=== PATIENT | male | born 1945 | race Caucasian/White ===

== ENCOUNTER 2017-09-27 09:13 | Inpatient (IN) ==
[2017-09-25 17:41] LABS: Appearance,Urine CLEAR; Bacteria,Urine 0 /hpf (0); Bilirubin,Urine NEG (NEG); Color,Urine YELLOW; Glucose,Urine (UA) NEGATIVE (NEG); Ictotest,Urine NEG (NEG); Leukocyte Esterase,Urine NEG /uL (NEG); Mucus,Urine FEW /hpf (0); Nitrate,Urine NEG (NEG); Protein,Urine NEG (NEG); Urine Blood 0.03 mg/dL (<0.03); Urine RBC 47 /hpf (0-1); Urine Squamous Epithelial Cell 1 /hpf (0-4); Urine WBC 2 /hpf (0-4)
[2017-09-25 17:44] LABS: Basophils # (Auto) 0 K/mcL (0.0-0.3); Basophils % (Auto) 0.4 % (0.0-2.0); Eosinophils # (Auto) 0 K/mcL (0.0-0.7); Eosinophils % (Auto) 0.4 % (0.0-7.0); Granulocytes % (Auto) 70.9 % (38.0-78.0); Lymphocytes # (Auto) 1.1 K/mcL (1.5-4.8); Lymphocytes % (Auto) 18.8 % (15.5-49.0); Mean Cell Volume 91.2 fL (80.0-100.0); Mean Corpuscular Hemoglobin 30.1 pg (26.0-34.0); Monocytes # (Auto) 0.6 K/mcL (0.1-0.9); Monocytes % (Auto) 9.5 % (1.0-12.0); Platelet Count 194 K/mcL (140-440); RBC 5.59 M/mcL (4.50-5.90); Red Cell Distribution Width 15.4 % (11.5-14.5)
[2017-09-25 17:54] LABS: Blood Urea Nitrogen 18 mg/dl (8-23)
[~2017-09-27 09:13] MED LIST: 0.9 % SODIUM CHLORIDE 250 ML IV SCH; CELECOXIB 200 MG CAPSULE PO SCH; KETOROLAC 30 MG, ROPIVACAINE HCL/PF 49.5 ML, EPINEPHrine 0.5 MG, 0.9 % SODIUM CHLORIDE ... IJ SCH; PREGABALIN 150 MG CAPSULE PO SCH; ceFAZolin 1 GM VIAL IV SCH; oxyCODONE 10 MG TAB.ER.12H PO SCH
[2017-09-27] MEDS ORDERED: PREGABALIN 75 MG CAPSULE PO SCH (10:00)
[2017-09-27] MEDS ORDERED: LIDOCAINE HCL/PF 100 MG/5 ML SYRINGE IV ONE (10:55)
[2017-09-27] MEDS ORDERED: MIDAZOLAM 2 MG/2 ML VIAL IV ONE (10:55)
[2017-09-27] MEDS ORDERED: ONDANSETRON 4 MG/2 ML VIAL IV ONE (10:55)
[2017-09-27] MEDS ORDERED: PROPOFOL 200 MG/20 ML VIAL IV ONE (10:55)
[2017-09-27] MEDS ORDERED: PHENYLEPHRINE 10 MG/ML VIAL IV ONE (10:55)
[2017-09-27] MEDS ORDERED: EPINEPHrine 1 MG/ML ML IV ONE (10:55)
[2017-09-27] MEDS ORDERED: BUPIVACAINE PF 0.5% 30 ML VIAL IJ ONE (10:55)
[2017-09-27] MEDS ORDERED: KETAMINE 100 MG/ML ML IV ONE (10:55)
[2017-09-27] MEDS ORDERED: GLYCOPYRROLATE 0.2 MG/ML VIAL IV ONE (10:55)
[2017-09-27] MEDS ORDERED: TRANEXAMIC ACID 1,000 MG/10 ML VIAL IV ONE ×2 (10:55→13:01)
[2017-09-27] MEDS ORDERED: MEPERIDINE 25 MG/ML SYRINGE IV PRN (12:04)
[2017-09-27] MEDS ORDERED: METHOCARBAMOL 1,000 MG/10 ML VIAL IV PRN (12:04)
[2017-09-27] MEDS ORDERED: ONDANSETRON 4 MG/2 ML VIAL IV PRN ×2 (12:04→13:01)
[2017-09-27] MEDS ORDERED: fentaNYL 100 MCG/2 ML VIAL IV PRN (12:04)
[2017-09-27] MEDS ORDERED: IPRATROPIUM/ALBUTEROL 3 ML AMPUL.NEB NEB PRN (12:04)
[2017-09-27] MEDS ORDERED: LACTATED RINGERS 1,000 ML IV SCH (12:15)
[2017-09-27] MEDS ORDERED: FLEETS ADULT ENEMA PR PRN (13:01)
[2017-09-27] MEDS ORDERED: MAGNESIUM HYDROXIDE 30 ML ORAL.SUSP PO PRN (13:01)
[2017-09-27] MEDS ORDERED: BENZOCAINE/MENTHOL 1 LOZENGE PO PRN (13:01)
[2017-09-27] MEDS ORDERED: POLYETHYLENE GLYCOL 3350 17 GM PACKET PO PRN (13:01)
[2017-09-27] MEDS ORDERED: BISACODYL 10 MG SUPP.RECT PR PRN (13:01)
--- NOTE | 2017-09-27 13:01 | Brief Operative Note ---
Date of procedure: 09/27/17 Pre-op diagnosis: Left knee DJD Post-op diagnosis: same Procedure: Left robotic assisted TKA Grafts/Implants: Yes ([place] Triathlon CR 5 femur, 5 tibia, 9 insert, 31 patella) Anesthesia: spinal, GLMA Findings: multi compartment DJD Complications: none Surgeon: Dixon Childs Pad Tufter: Riley Soliz Estimated blood loss (cc): 30 Specimens Removed/Pathology: none sent Condition: stable Disposition: PACU
--- NOTE | 2017-09-27 14:21 | XRay Report ---
HISTORY: Reason for Exam:Post-op total knee FINDINGS: There is a well positioned total knee prosthesis. There are radiolucent screw holes in the distal femur and proximal tibia due to the surgical procedure. No fracture is present. A moderate amount of calcified plaque is present in the popliteal artery. IMPRESSION: Well-positioned left knee prosthesis Interpreted and Authenticated by: Ti Pollack 09/27/17
[2017-09-27] MEDS: 0.9 % SODIUM CHLORIDE 1,000 ML IV SCH (14:33)
[2017-09-27] MEDS: 0.9 % SODIUM CHLORIDE 10 ML SYRINGE IV SCH ×2 (14:34→20:50)
[2017-09-27] MEDS: HYDROcodone/APAP 10/325MG TABLET PO PRN ×2 (16:44→20:50)
[2017-09-27] MEDS: ceFAZolin 1 GM VIAL IV SCH (19:15)
[2017-09-27] MEDS: PREGABALIN 150 MG CAPSULE PO SCH (20:50)
[2017-09-27] MEDS: ASPIRIN 325 MG ENTERIC COATED TABLET PO SCH (20:50)
[2017-09-27] MEDS: SENNOSIDES 1 TABLET PO SCH (20:50)
[2017-09-27] MEDS: DOCUSATE SODIUM 100 MG CAPSULE PO SCH (20:50)
[2017-09-27] MEDS: HYDROmorphone 2 MG/ML SYRINGE IV PRN (23:15)
[2017-09-28] MEDS: 0.9 % SODIUM CHLORIDE 1,000 ML IV SCH ×3 (01:09→19:59)
[2017-09-28] MEDS: HYDROcodone/APAP 10/325MG TABLET PO PRN ×2 (03:15→06:52)
[2017-09-28] MEDS: ceFAZolin 1 GM VIAL IV SCH (03:16)
[2017-09-28] MEDS: HYDROmorphone 2 MG/ML SYRINGE IV PRN ×3 (06:03→19:27)
[2017-09-28] MEDS: 0.9 % SODIUM CHLORIDE 10 ML SYRINGE IV SCH ×3 (06:03→23:35)
--- NOTE | 2017-09-28 07:26 | Orthopedic Progress Note ---
Orthopedics - Auxillary Note - Subjective Patient Information: Note initiated : 09/28/17 at 7:25 am Service Date, if different from initiated Date: [] Patient: Cuco Christianson 72 y/o M admitted on 09/27/17 for Lt Medial Partial James Knee Arthroplasty vs Total. Chief Complaint: moderate pain bandages light bloody drainage nvi-distal Vital Signs Temp Pulse Resp BP BP Pulse Ox 09/28/17 03:19 98.2 F 89 24 H 146/81 91 09/28/17 00:00 97.9 F 75 24 H 132/74 91 09/27/17 20:00 97.4 F 62 24 H 133/62 92 09/27/17 17:00 135/66 93 09/27/17 16:00 190/80 94 09/27/17 15:30 162/81 86 L 09/27/17 15:00 149/79 92 09/27/17 14:45 150/68 94 09/27/17 14:30 158/69 95 09/27/17 14:15 97.1 F 159/67 92 09/27/17 14:06 99.1 F H 73 16 168/70 94 09/27/17 13:50 98.8 F 71 16 165/61 94 09/27/17 13:35 98.8 F 74 18 147/81 96 09/27/17 09:43 98.2 F 76 16 177/74 97 Intake and Output 09/27/17 09/28/17 09/28/17 21:59 05:59 13:59 Intake Total 1200 / 1200 2250 / 2250 Output Total 800 / 800 825 / 825 Balance 400 / 400 1425 / 1425 Intake: IV 1000 / 1000 Sodium Chloride 0.9% 1,000 ml @ 1000 / 1000 100 mls/hr IV .Q10H TAY Rx#: [id number] Oral 1200 / 1200 1250 / 1250 Output: Void Amount 650 / 650 825 / 825 Estimated Blood Loss 150 / 150 Other: Meal Dinner sandwich Percent of Meal Consumed 100% 100% Feeding Ability Independent Independent Weight 302 lb Laboratory Results - last 24 hr 09/28/17 06:15 Hgb 13.9 Hct 40.9 L s/p L TKA-stable mobilize with PT tentative discharge 09/29/17
[2017-09-28] MEDS: ASPIRIN 325 MG ENTERIC COATED TABLET PO SCH ×2 (08:16→20:05)
[2017-09-28] MEDS: POTASSIUM CHLORIDE 10 MEQ TABLET PO SCH (08:16)
[2017-09-28] MEDS: DOCUSATE SODIUM 100 MG CAPSULE PO SCH ×2 (08:16→20:05)
[2017-09-28] MEDS: PREGABALIN 150 MG CAPSULE PO SCH ×2 (08:16→20:05)
[2017-09-28] MEDS: amLODIPine 10 MG TABLET PO SCH (08:16)
[2017-09-28] MEDS: FUROSEMIDE 20 MG TABLET PO SCH (08:16)
--- NOTE | 2017-09-28 09:37 | Operative Note ---
DATE OF OPERATION: 09/27/2017 PREOPERATIVE DIAGNOSIS: Left knee degenerative joint disease. POSTOPERATIVE DIAGNOSIS: Left knee degenerative joint disease. PROCEDURE PERFORMED: Left robotic-assisted total knee arthroplasty placing a [place] triathlon size 5 cruciate retaining femoral component, a size 5 tibial baseplate, a 9 mm X3 tibial insert with a 31 mm patellar button. SURGEON: Dixon Childs MD. EXTERMINATOR TERMITE: Herman Soliz PA-C. ANESTHESIA: Spinal plus general. DRAINS: None. SPECIMENS: Bone cuts, which were discarded. BLOOD LOSS: Less than 50 mL COMPLICATIONS: None. POSTOPERATIVE CONDITION: Stable. INDICATIONS FOR SURGERY: This is a 72-year-old male who has had longstanding worsening severe left knee pain. He had x-rays which showed joint space narrowing and arthritis. He had received injections with only temporary relief and it was limiting his ability to ambulate. FINDINGS AT SURGERY: He did have fairly significant trochlear chondromalacia as well as medial femoral condyle chondromalacia and there was a chondral defect with a grade III flap off the lateral femoral condyle. Post implantation showed good overall limb alignment, stability and patellar tracking. PROCEDURE IN DETAIL: The patient had been seen preoperatively. Informed consent had been obtained after discussion of risks and benefits of surgery. Risks including, but not limited to, bleeding, possibly requiring transfusion; infection, possibly requiring implant removal and prolonged IV antibiotics, possibly even above-knee amputation, incomplete or no resolution of symptoms; DVT and pulmonary embolus risks, instability; swelling; stiffness, clunking; possibility of needing further revision surgery. He understood these risks and wished to proceed. Correct operative site was marked and the patient was given spinal anesthesia and taken to the operating room and LMA general given. The left lower extremity was carefully prepped and draped in normal sterile fashion and a time-out was performed verifying patient name, operative site, and plan. Esmarch was used to exsanguinate the extremity and tourniquet was inflated to 300 mmHg. Midline incision was made with a scalpel through skin and subcutaneous tissue and then IrriSept was irrigated. We then made a medial parapatellar arthrotomy. Subperiosteal exposure was done of the anterior medial tibia and then we inspected the joint and found the above findings. Based off those findings, we elected to proceed with a total knee. We went ahead and excised the retropatellar fat pad and anterior horns of the menisci. ACL was transected and the distal anterior cortex of the femur was also exposed subperiosteally. We placed the femoral and tibial checkpoints and then two stab incisions were made over the femur and two over the tibia and bicortical pins were placed and the arrays were connected. We then checked our hip center of rotation. The green probe was used to identify our medial lateral malleoli, double checks were done with green probe and the femoral and tibial checkpoints. We then did the blue probe for mapping. Once this was completed, we checked our flexion and extension gaps. Adjustments were made to give us 17 mm gap which we had on flexion medial and laterally as well as extension medially with 18 mm laterally. We went ahead and locked in the computer and then using the robotic assistance we made our distal and posterior chamfer cuts followed by our remaining cuts. Once this was completed, tibial rotation was marked with the green probe and Bovie cautery. We then placed our tibial baseplate trial pinning this into place. A boss reamer and keel punch were used to repair and then the femur was elevated. A curved osteotome and curet were used to remove osteophytes. We then placed our keel baseplate trial. The femur trial was impacted and pinned. We drilled our peg holes. A 9 insert trial was placed which was very snug. The knee was then taken into full extension. We then prepared the patella. Pre-resection was 24 mm, post-resection was 14 mm. We sized this to a 31, which was medialized maximally. Peg holes were drilled. We then performed a lateral facetectomy. We checked our patellar tracking, which was good. We went ahead and removed trial implants. Definitive implants were opened. IrriSept was used to fill the joint. After a minute we pulse lavaged with saline. Antibiotic cement was mixed. We cemented the tibia followed by the femur. Excess cement was removed and then the 9 insert trial was placed and the knee was taken into full extension. Patellar button was then cemented and then while cement was hardening, the joint was filled the IrriSept again and we injected pain cocktail into the pericapsular and subcutaneous tissues. Then pulse lavaged until cement had fully hardened and then flexed the knee up, removed the trial insert and did final removal for any cement. We injected the posterior medial capsule with pain cocktail and then irrigated IrriSept, and the definitive 9 mm insert was impacted. We then pulse lavaged and then the knee was placed in about 45 degrees of flexion. Checkpoints were removed and then interrupted #2 FiberWire was used, [id number] around the superior quadrant of the patella, #1 Vicryl [id number] around the inferior quadrant running #1 Vicryl stitch for the patellar tendon and quad tendon. Final IrriSept irrigation was done, after a minute final pulse lavage and then 2-0 Monocryl subcutaneous and louisa for skin. The pins were removed and louisa used for the pin sites. Xeroform and sterile dressing were applied and the tourniquet was released. The patient was awakened, extubated, and transferred to recovery in stable condition. BJB:kemal Job ID: [id number] Doc ID: [id number] Dixon Childs MD
[2017-09-28] MEDS: oxyCODONE/APAP 5/325MG TABLET PO PRN ×4 (11:55→23:29)
[2017-09-28] MEDS: SENNOSIDES 1 TABLET PO SCH (20:05)
[2017-09-29] MEDS: oxyCODONE/APAP 5/325MG TABLET PO PRN (04:16)
[2017-09-29] MEDS: 0.9 % SODIUM CHLORIDE 10 ML SYRINGE IV SCH ×3 (04:21→23:06)
[2017-09-29] MEDS ORDERED: oxyCODONE/APAP 5/325MG TABLET PO PRN (07:45)
[2017-09-29] MEDS: FUROSEMIDE 20 MG TABLET PO SCH (09:29)
[2017-09-29] MEDS: PREGABALIN 150 MG CAPSULE PO SCH ×2 (09:29→21:25)
[2017-09-29] MEDS: ASPIRIN 325 MG ENTERIC COATED TABLET PO SCH ×2 (09:29→21:25)
[2017-09-29] MEDS: POTASSIUM CHLORIDE 10 MEQ TABLET PO SCH (09:29)
[2017-09-29] MEDS: amLODIPine 10 MG TABLET PO SCH (09:29)
[2017-09-29] MEDS: DOCUSATE SODIUM 100 MG CAPSULE PO SCH ×2 (09:29→21:25)
--- NOTE | 2017-09-29 10:06 | Orthopedic Progress Note ---
Subjective Patient information: Note initiated : 09/29/17 at 10:03 am Service Date, if different from initiated Date: [] Patient: Cuco Christianson 72 y/o M admitted on 09/27/17 for Lt Medial Partial James Knee Arthroplasty vs Total. Chief Complaint: [] Principal diagnosis: s/p L total knee Interval history: c/o severe pain, unable to mobilize Objective Vital signs: Vital Signs Temp Pulse Resp BP BP Pulse Ox 09/29/17 07:03 97.7 F 20 126/68 93 09/29/17 06:43 24 H 94 09/29/17 04:00 97.9 F 83 24 H 148/76 96 09/28/17 23:18 98.6 F 80 18 149/68 91 09/28/17 20:00 98.2 F 84 20 151/73 91 09/28/17 16:00 97.6 F 20 150/83 90 09/28/17 12:00 97.6 F 20 159/86 90 Intake and Output 09/28/17 09/29/17 09/29/17 21:59 05:59 13:59 Intake Total 420 / 420 960 / 960 120 / 120 Output Total 750 / 750 575 / 575 700 / 700 Balance -330 / -330 385 / 385 -580 / -580 Intake: Oral 420 / 420 960 / 960 120 / 120 Output: Void Amount 750 / 750 575 / 575 700 / 700 Other: Meal Dinner Breakfast Percent of Meal Consumed 75% 100% Feeding Ability Independent # Voids 2 1 Weight 304 lb Intake & Output: Intake & Output 09/28/17 09/29/17 09/29/17 21:59 05:59 13:59 Intake Total 420 / 420 960 / 960 120 / 120 Output Total 750 / 750 575 / 575 700 / 700 Balance -330 / -330 385 / 385 -580 / -580 Weight 304 lb Intake: Oral 420 / 420 960 / 960 120 / 120 Output: Void Amount 750 / 750 575 / 575 700 / 700 Other: Meal Dinner Breakfast Percent of Meal Consumed 75% 100% Feeding Ability Independent # Voids 2 1 Dressing: Yes clean, Yes dry, Yes intact Neurological exam IM: Yes alert, Yes oriented X3 - Labs CBC & BMP: 09/29/17 04:53 09/25/17 15:10 Labs: Orthopedic Labs 09/29/17 09/28/17 09/25/17 04:53 06:15 15:10 PT 15.6 H 13.7 13.4 INR 1.2 H 1.0 1.0 09/29/17 09/28/17 09/25/17 04:53 06:15 15:10 Hgb 13.1 L 13.9 16.8 H Hct 38.7 L 40.9 L 51.0 Assessment and Plan (1) Status post total knee replacement, left POD#2 s/p L total knee-progressing poorly due to poor pain tolerance and deconditioning -increase oral pain meds to percocet 10 -cont to try to mobilize -will hold d/c today, may need short term SNF or swing bed if he can't improve his mobilization Status: Acute
--- NOTE | 2017-09-29 10:10 | Discharge Summary ---
Providers - Providers Patient information: Note initiated : 09/29/17 at 10:08 am Service Date, if different from initiated Date: [] Patient: Cuco Christianson 72 y/o M admitted on 09/27/17 for Lt Medial Partial James Knee Arthroplasty vs Total. Chief Complaint: [] Date of admission: 09/27/17 Discharge date: 09/30/17 Attending physician: Dixon Childs Hospitalization Hospital course: Patient was admitted postoperatively, he progressed poorly due to poor pain tolerance from hx of chronic narcotic use and deconditioning and morbid obesity. Discharge diagnosis: s/p Left total knee arthroplasty Procedures: Left robotic assisted total knee arthroplasty Exam - Exam Clean and dry: Yes Weight bearing status: as tolerated Ortho Discharge - TKA - Patient Instructions Diet: Consistent Carbohydrate Activity: weight bearing as tolerated Total Knee Protocol: For Total Knee: Start ROM ZENA with stationary bike or rocking chair. Work on gaining full extension of knee. Posterior dislocation precautions provided. Hip abductor strengthening and gait training instructions provided. Apply Cryocuff as instructed. Dressing Care: Aquacel Ag - leave on for 5 days Patient Education: Total Knee Replacement (DC) Additional Instructions: Discharge Instructions: Do the exercises at home that physical therapy gave you throughout the day. You are scheduled to start physical therapy at Take your prescription, photo ID, insurance cards, and current medication list with you to your first physical therapy appointment. Take your prescription to pharmacy picking technician any medication or equipment (such as walker, crutches, toilet riser or C.P.M.) Wear comfortable clothing for your physical therapy, wear/bring shorts. Weight bearing as tolerated. You have the Aquacel Ag dressing, leave in place for 7 days then remove. If dressing becomes soiled (turns black), remove and use gauze 4x4 dressing and silvasorb ointment and change daily. Keep incision clean and dry. You may start showering on post op day #2. To avoid constipation while taking any narcotic pain medication, take an over the counter stool softener/laxative. Use your Cryocuff or ice packs as directed, on for 20 minutes at a time throughout the day. This and elevation will help with pain and swelling. Call your physician for fevers above 100.5 or pain not controlled by medication. Your prescriptions are with your discharge information. Some medications were electronically transmitted to your pharmacy of choice. - Problem Maintenance (1) Status post total knee replacement, left Status: Acute - Follow Up Plan Follow Up Appointments: Dixon Childs MD [Physician] - 10/11/17 1:00 pm Disposition: Home, Self-Care Prognosis: Fair Rehab Potential: Fair - Orders For Discharge Additional Discharge Orders: Physical Therapy at Discharge - TKA Location: Determined By Patient Toilet Riser Discharge Order Location: Determined By Patient Walker Location: Determined By Patient Pending Studies Resuscitation Status Full Code Diet Consistent Carbohydrate Diet Start MonSep 27 1518 Amlodipine Besylate (Norvasc) 10 mg PO DAILY [facility] Last Admin: 09/29/17 09:29 Dose: 10 mg Admin: 09/28/17 08:16 Dose: 10 mg Aspirin (Ecotrin) 325 mg PO BID [facility] Last Admin: 09/29/17 09:29 Dose: 325 mg Admin: 09/28/17 20:05 Dose: 325 mg Admin: 09/28/17 08:16 Dose: 325 mg Admin: 09/27/17 20:50 Dose: 325 mg Docusate Sodium (Colace) 100 mg PO BID [facility] Last Admin: 09/29/17 09:29 Dose: 100 mg Admin: 09/28/17 20:05 Dose: 100 mg Admin: 09/28/17 08:16 Dose: 100 mg Admin: 09/27/17 20:50 Dose: 100 mg Furosemide (Lasix) 20 mg PO DAILY [facility] Last Admin: 09/29/17 09:29 Dose: 20 mg Admin: 09/28/17 08:16 Dose: 20 mg Hydromorphone HCl (Dilaudid) 0 mg IV Q2HP PRN PRN Reason: PAIN LEVEL > 6 Last Admin: 09/28/17 19:27 Dose: 1 mg Admin: 09/28/17 07:41 Dose: 2 mg Admin: 09/28/17 06:03 Dose: 1 mg Admin: 09/27/17 23:15 Dose: 2 mg Potassium Chloride (Kdur) 10 meq PO QAMCC [facility] Last Admin: 09/29/17 09:29 Dose: 10 meq Admin: 09/28/17 08:16 Dose: 10 meq Pregabalin (Lyrica) 150 mg PO BID [facility] Last Admin: 09/29/17 09:29 Dose: 150 mg Admin: 09/28/17 20:05 Dose: 150 mg Admin: 09/28/17 08:16 Dose: 150 mg Admin: 09/27/17 20:50 Dose: 150 mg Senna (Senokot) 2 tab PO HS [facility] Last Admin: 09/28/17 20:05 Dose: 2 tab Admin: 09/27/17 20:50 Dose: 2 tab Sodium Chloride (Saline Flush) 10 ml IV Q8 [facility] Last Admin: 09/29/17 04:21 Dose: 10 ml Admin: 09/28/17 23:35 Dose: 10 ml Admin: 09/28/17 15:50 Dose: Admin: 09/28/17 06:03 Dose: 10 ml Admin: 09/27/17 20:50 Dose: Not Given Admin: 09/27/17 14:34 Dose: Not Given Shift Summary 09/29/17 05:00 Shift Summary by Yee Willoughby Pt A&O, up to edge of bed to use urinal w/o difficulty. Pain controlled with Percocet Q4. Gave 1mg Dilaudid start of shift with good relief. IV SL to LAC. SOB on exertion. Pitting edema to bilat legs. Changed dressing to knee this AM, applied aquacel ag. Has not walked tonight. Was extentive assist with FWW yesterday to get to chair. Pt is encouraged to consider SNF placement for rehab. Initialized on 09/29/17 05:00 - END OF NOTE
[2017-09-29] MEDS: oxyCODONE/APAP 10/325MG TABLET PO PRN ×3 (13:01→23:27)
[2017-09-29] MEDS: SENNOSIDES 1 TABLET PO SCH (21:24)
[2017-09-30] MEDS: 0.9 % SODIUM CHLORIDE 10 ML SYRINGE IV SCH ×3 (05:59→22:30)
[2017-09-30] MEDS: oxyCODONE/APAP 10/325MG TABLET PO PRN ×4 (07:15→21:27)
[2017-09-30] MEDS: ASPIRIN 325 MG ENTERIC COATED TABLET PO SCH ×2 (08:33→21:28)
[2017-09-30] MEDS: POTASSIUM CHLORIDE 10 MEQ TABLET PO SCH (08:33)
[2017-09-30] MEDS: DOCUSATE SODIUM 100 MG CAPSULE PO SCH ×2 (08:33→21:28)
[2017-09-30] MEDS: amLODIPine 10 MG TABLET PO SCH (08:33)
[2017-09-30] MEDS: FUROSEMIDE 20 MG TABLET PO SCH (08:33)
[2017-09-30] MEDS: PREGABALIN 150 MG CAPSULE PO SCH ×2 (08:33→21:27)
--- NOTE | 2017-09-30 09:18 | Orthopedic Progress Note ---
Subjective Patient information: Note initiated : 09/30/17 at 9:16 am Service Date, if different from initiated Date: [] Patient: Cuco Christianson 72 y/o M admitted on 09/27/17 for Lt Medial Partial James Knee Arthroplasty vs Total. Chief Complaint: [S/p left TKA] Patient's pain is improving slowly. He was able to ambulate some today though his ambulation is still limited. He denies any calf tenderness, SOA, or chest pain. Principal diagnosis: s/p L total knee Objective Vital signs: Vital Signs Temp Pulse Resp BP BP Pulse Ox 09/30/17 07:05 97.1 F 20 144/76 93 09/30/17 04:00 97.6 F 80 18 168/70 96 09/29/17 23:59 98.1 F 82 20 120/56 96 09/29/17 20:00 98.8 F 91 H 20 153/83 92 09/29/17 16:00 97 F 20 122/70 94 09/29/17 11:30 98 F 22 131/63 93 Intake and Output 09/29/17 09/30/17 09/30/17 21:59 05:59 13:59 Intake Total 360 / 360 1560 / 1560 840 / 840 Output Total 1175 / 1175 300 / 300 800 / 800 Balance -815 / -815 1260 / 1260 40 / 40 Intake: Oral 360 / 360 1560 / 1560 840 / 840 Output: Void Amount 1175 / 1175 300 / 300 800 / 800 Other: Meal Dinner Percent of Meal Consumed 100% Feeding Ability Independent # Voids 1 1 1 Weight 304 lb Intake & Output: Intake & Output 09/29/17 09/30/17 09/30/17 21:59 05:59 13:59 Intake Total 360 / 360 1560 / 1560 840 / 840 Output Total 1175 / 1175 300 / 300 800 / 800 Balance -815 / -815 1260 / 1260 40 / 40 Weight 304 lb Intake: Oral 360 / 360 1560 / 1560 840 / 840 Output: Void Amount 1175 / 1175 300 / 300 800 / 800 Other: Meal Dinner Percent of Meal Consumed 100% Feeding Ability Independent # Voids 1 1 1 Incision: Yes healing Incision clean and dry: Yes Dressing: Yes clean, Yes dry, Yes intact Weight bearing status: full Neurological exam IM: Yes alert, Yes motor sensory intact, Yes neurovascular intact Extremities exam IM: Yes calf tenderness (Negative Lily's sign bilat), Yes neurovascular intact - Labs CBC & BMP: 09/30/17 05:07 09/25/17 15:10 Labs: Orthopedic Labs 09/30/17 09/29/17 09/28/17 05:07 04:53 06:15 PT 14.8 H 15.6 H 13.7 INR 1.1 1.2 H 1.0 09/25/17 15:10 PT 13.4 INR 1.0 09/30/17 09/29/17 09/28/17 05:07 04:53 06:15 Hgb 12.5 L 13.1 L 13.9 Hct 36.6 L 38.7 L 40.9 L 09/25/17 15:10 Hgb 16.8 H Hct 51.0 Assessment and Plan (1) Status post total knee replacement, left Continue PT to improve ROM. Discharge to swing bed at [facility] today. Status: Acute
[2017-09-30] MEDS: SENNOSIDES 1 TABLET PO SCH (21:27)
[2017-10-01] MEDS: oxyCODONE/APAP 10/325MG TABLET PO PRN ×5 (01:48→22:43)
[2017-10-01] MEDS: 0.9 % SODIUM CHLORIDE 10 ML SYRINGE IV SCH ×3 (06:11→21:09)
--- NOTE | 2017-10-01 08:22 | Orthopedic Progress Note ---
Subjective Patient information: Note initiated : 10/01/17 at 8:19 am Service Date, if different from initiated Date: [] Patient: Cuco Christianson 72 y/o M admitted on 09/27/17 for Lt Medial Partial James Knee Arthroplasty vs Total. Chief Complaint: [S/P left TKA] Patient is doing well though his ambulation has still been somewhat limited. He requires assistance at this point to ambulate. He denies any calf tenderness, increased SOA, or chest pain. Principal diagnosis: s/p L total knee Objective Vital signs: Vital Signs Temp Pulse Resp BP Pulse Ox 10/01/17 06:53 97.6 F 22 178/65 93 10/01/17 04:00 97.1 F 76 18 144/74 94 10/01/17 00:00 98.3 F 84 18 125/65 90 09/30/17 20:00 98.3 F 74 20 147/73 93 09/30/17 15:22 98 F 20 142/69 96 09/30/17 11:26 97.6 F 20 132/65 96 Intake and Output 09/30/17 10/01/17 10/01/17 21:59 05:59 13:59 Intake Total 640 / 640 600 / 600 Output Total 675 / 675 475 / 475 Balance -35 / -35 125 / 125 Intake: Oral 640 / 640 600 / 600 Output: Void Amount 675 / 675 475 / 475 Other: Meal Dinner Percent of Meal Consumed 100% Weight 303 lb 8 oz Intake & Output: Intake & Output 09/30/17 10/01/17 10/01/17 21:59 05:59 13:59 Intake Total 640 / 640 600 / 600 Output Total 675 / 675 475 / 475 Balance -35 / -35 125 / 125 Weight 303 lb 8 oz Intake: Oral 640 / 640 600 / 600 Output: Void Amount 675 / 675 475 / 475 Other: Meal Dinner Percent of Meal Consumed 100% Incision: Yes clean and dry Incision clean and dry: Yes Dressing: Yes clean, Yes dry, Yes intact Weight bearing status: as tolerated Neurological exam IM: Yes abnormal gait, Yes alert, Yes oriented X3, Yes motor sensory intact, Yes neurovascular intact Additional Comments: Venous insufficiency noted bilaterally with cellulitis of the left calf/ankle which is unchanged from yesterday. - Labs CBC & BMP: 09/30/17 05:07 09/25/17 15:10 Labs: Orthopedic Labs 10/01/17 09/30/17 09/29/17 04:31 05:07 04:53 PT 13.9 14.8 H 15.6 H INR 1.0 1.1 1.2 H 09/28/17 09/25/17 06:15 15:10 PT 13.7 13.4 INR 1.0 1.0 09/30/17 09/29/17 09/28/17 05:07 04:53 06:15 Hgb 12.5 L 13.1 L 13.9 Hct 36.6 L 38.7 L 40.9 L 09/25/17 15:10 Hgb 16.8 H Hct 51.0 Assessment and Plan (1) Status post total knee replacement, left Continue PT to improve ROM. Likely discharge to swing bed at [facility] tomorrow as it has not been [facility] yet. Status: Acute
[2017-10-01] MEDS: ASPIRIN 325 MG ENTERIC COATED TABLET PO SCH ×2 (09:33→21:08)
[2017-10-01] MEDS: DOCUSATE SODIUM 100 MG CAPSULE PO SCH ×2 (09:33→21:08)
[2017-10-01] MEDS: PREGABALIN 150 MG CAPSULE PO SCH ×2 (09:33→21:08)
[2017-10-01] MEDS: POTASSIUM CHLORIDE 10 MEQ TABLET PO SCH (09:33)
[2017-10-01] MEDS: amLODIPine 10 MG TABLET PO SCH (09:33)
[2017-10-01] MEDS: FUROSEMIDE 20 MG TABLET PO SCH (09:33)
[2017-10-01] MEDS: SENNOSIDES 1 TABLET PO SCH (21:08)
[2017-10-02] MEDS: oxyCODONE/APAP 10/325MG TABLET PO PRN ×5 (04:23→21:32)
[2017-10-02] MEDS: 0.9 % SODIUM CHLORIDE 10 ML SYRINGE IV SCH ×3 (07:47→21:36)
[2017-10-02] MEDS: DOCUSATE SODIUM 100 MG CAPSULE PO SCH ×2 (08:24→21:33)
[2017-10-02] MEDS: ASPIRIN 325 MG ENTERIC COATED TABLET PO SCH ×2 (08:24→21:33)
[2017-10-02] MEDS: POTASSIUM CHLORIDE 10 MEQ TABLET PO SCH (08:24)
[2017-10-02] MEDS: amLODIPine 10 MG TABLET PO SCH (08:24)
[2017-10-02] MEDS: PREGABALIN 150 MG CAPSULE PO SCH ×2 (08:24→21:32)
[2017-10-02] MEDS: FUROSEMIDE 20 MG TABLET PO SCH (08:24)
[2017-10-02] MEDS: SENNOSIDES 1 TABLET PO SCH (21:33)
[2017-10-03] MEDS: oxyCODONE/APAP 10/325MG TABLET PO PRN ×2 (03:19→11:02)
[2017-10-03] MEDS: 0.9 % SODIUM CHLORIDE 10 ML SYRINGE IV SCH (05:53)
[2017-10-03] MEDS: DOCUSATE SODIUM 100 MG CAPSULE PO SCH (08:51)
[2017-10-03] MEDS: amLODIPine 10 MG TABLET PO SCH (08:51)
[2017-10-03] MEDS: PREGABALIN 150 MG CAPSULE PO SCH (08:51)
[2017-10-03] MEDS: POTASSIUM CHLORIDE 10 MEQ TABLET PO SCH (08:51)
[2017-10-03] MEDS: FUROSEMIDE 20 MG TABLET PO SCH (08:51)
[2017-10-03] MEDS: ASPIRIN 325 MG ENTERIC COATED TABLET PO SCH (08:51)
== END 2017-10-03 14:25 | disposition other institution (70) | DRG 470 ==
LOC: SUR 09:13 → MEDSUR 14:10
PROVIDERS: ADMIT Orthopaedic Surgery; ATTEND Orthopaedic Surgery